=== PATIENT | female | born 1975 | race Asian ===

== ENCOUNTER 2018-07-29 23:36 | Emergency (ER) | payer BC ==
[~2018-07-29] VITALS: Ht 165.1 cm; Wt 81.0 kg
[~2018-07-29 23:36] MED LIST: IBUP-1986 PO; ONDA4TAB6 PO; ONDA8TAB9 PO
--- NOTE | 2018-07-29 23:47 | NUR ---
PT ARRIVED BY [facility] FOR LEGAL DRAW - PT WAS NOT REGISTERED PT STATED SHE WAS DIABETIC AND OFFICER ASKED IF WE COULD CHECK PTS BLOOD SUGAR - I WAS BUSY AND DELEGATED THE TASK TO ABDI HOLBROOK. ABDI USED THE EMERGENT TESTING FORM AND CHECKED PTS BLOOD SUGAR - FORM WAS FILLED OUT BY ABDI AND SIGNED BY MYSELF. AFTER SEEING THE RESULT OF THE BLOOD SUGAR, THE OFFICER REQUESTED WE REGISTER THE PATIENT THE SHELTER WOULD REQUIRE A MED CLEARANCE FOR A BLOOD SUGAR VALUE OF THAT RANGE. PT WAS THEN REGISTERED AND APPROPRIATE STICKER PLACED ON FORM. I THEN FAXED THE FORM TO THE REQUESTED LOCATION WELL PERSONALLY DELIVERED THE FORM TO ZAYRA IN THE LAB.
[2018-07-30] MEDS ORDERED: insulin regular, human 10 units/0.1 ml syringe SQ ONE (00:10)
[2018-07-30 00:11] VITALS: BP 148/64
== END 2018-07-30 00:47 ==
LOC: ER 23:37
DX: E11.9 Type 2 diabetes mellitus without complications (principal); Z02.89 Encounter for other administrative examinations; Z90.49 Acquired absence of other specified parts of digestive tract; Z79.899 Other long term (current) drug therapy
CPT/HCPCS: 82948; 96372; 99283; J1815